=== PATIENT | female | born 1970 | race Caucasian/White ===

== ENCOUNTER 2019-07-15 12:25 | Day surgery (SDC) | payer OTHER ==
--- NOTE | 2019-07-11 15:24 | HP ---
Admitting History and Physical - Primary Care Physician PCP: Claritza Tony - Admission Chief Complaint: Right lower back melanoma History of Present Illness: 48 year old premenapausal female whose noticed a pigmented lesion on her right lower back, [employer] Tender did a wedge bx which showed 1.0 thick nevoid melanoma with positive deep margin.No ulceration or mitotic index. History Source: Patient Limitations to Obtaining History: No Limitations - Past Surgical History Past Surgical History: Yes: Tubal Ligation (2004) Additional Past Surgical History: breast reduction 2002 - Smoking History Smoking history: Former smoker Have you smoked in the past 12 months: No - Alcohol/Substance Use Hx Alcohol Use: Yes (social) Home Medications - Allergies Allergies/Adverse Reactions: Allergies Allergy/AdvReac Type Severity Reaction Status Date / Time No Known Allergies Allergy Verified 07/11/19 15:19 Family Medical History Family History: Unable to Obtain (adopted) Physical Examination Constitutional: Yes: Well Nourished Integumentary: Yes: Other (5mm eschar right lower back without pigmented lesion or satellites) Problem List - Problems (1) Melanoma Code(s): C43.9 - MALIGNANT MELANOMA OF SKIN, UNSPECIFIED Qualifiers: Melanoma location: unspecified site Qualified Code(s): C43.9 - Malignant melanoma of skin, unspecified Assessment/Plan malignant melanoma right lower back Right lower back malignant wide excision , sentenel node biopsy , lymphoscintogram ,possible dissection
[2019-07-11 15:44] VITALS: BMI 30.7
[2019-07-15] MEDS ORDERED: LIDOCAINE HCL 1%, 10 MG/ML (20ML VIAL) ONE (12:53)
[2019-07-15] MEDS ORDERED: HALOPERIDOL LACTATE 5 MG/ML ONE (14:11)
[2019-07-15] MEDS ORDERED: MIDAZOLAM HCL 2 MG/2 ML SINGLE DOSE VIAL ONE (14:12)
[2019-07-15] MEDS ORDERED: fentaNYL CITRATE 250 MCG/5 ML VIAL ONE (14:23)
[2019-07-15] MEDS ORDERED: PROPOFOL 20 ML ONE ×9 (14:24→15:57)
[2019-07-15] MEDS ORDERED: SUCCINYLCHOLINE CHLORIDE 200 MG/10 ML SYRINGE ONE (14:24)
[2019-07-15] MEDS ORDERED: ISOSULFAN BLUE 10 MG/ML VIAL SQ ONE ×2 (14:37→14:38)
[2019-07-15] MEDS ORDERED: LIDOCAINE HCL 2% JELLY (5 ML/TUBE) ONE (14:43)
[2019-07-15] MEDS ORDERED: KETOROLAC TROMETHAMINE 30 MG/1 ML VIAL ONE (14:43)
[2019-07-15] MEDS ORDERED: ONDANSETRON 4 MG/2 ML VIAL ONE (14:43)
[2019-07-15] MEDS ORDERED: LIDOCAINE HCL/PF 2% SDV 5ML VIAL ONE (14:43)
[2019-07-15] MEDS ORDERED: DEXAMETHASONE SOD PHOSPHATE 4 MG/1 ML VIAL ONE (14:43)
[2019-07-15] MEDS ORDERED: BUPIVACAINE HCL/PF 0.5% (5MG/ML) 10 ML VIAL ONE ×3 (15:18→15:47)
[2019-07-15] MEDS ORDERED: BUPIVACAINE HCL/PF 0.5% (5 MG/ML) 30 ML VIAL IJ ONE (15:25)
[2019-07-15] MEDS ORDERED: LIDOCAINE 1%/EPI 1:100000 (20 ML MULTI DOSE VIAL) ONE (15:47)
[2019-07-15] MEDS ORDERED: LIDOCAINE 1%/EPI 1:100000 (20 ML MULTI DOSE VIAL) IJ ONE ×2 (15:51)
[2019-07-15] MEDS ORDERED: ONDANSETRON 4 MG/2 ML VIAL IVPUSH PRN ×2 (16:31→16:40)
[2019-07-15] MEDS ORDERED: oxyCODONE HCL 5 MG TABLET PO PRN (16:31)
[2019-07-15] MEDS ORDERED: KETOROLAC TROMETHAMINE 30 MG/1 ML VIAL IVPUSH PRN (16:40)
[2019-07-15] MEDS ORDERED: LACTATED RINGERS SOLUTION 1,000 ML IV SCH (16:45)
[2019-07-15] MEDS ORDERED: DEXTROSE 5%-0.45% SALINE 1,000 ML IV SCH (16:45)
[2019-07-15 17:31] VITALS: TEMP 97.9
[2019-07-15 17:55] VITALS: BP 128/83; PULSE 76
--- NOTE | 2019-07-21 12:30 | PATH ---
Surgical Pathology Report Patient Name: DELGADO OLIVIA [facility]. Rec. #: [id number] /Age/Gender: 1970 (Age: 48) / F Account: [id number] Location: [facility] Taken: 07/15/2019 Received: 07/15/2019 Reported: 07/21/2019 Physicians: Claritza Tony M.D. Specimen(s) Received A: RIGHT AXILLARY SENTINEL LYMPH NODES B: MELANOMA RIGHT LOWER BACK Clinical History Malignant melanoma right lower back Final Diagnosis A. axillary sentinel lymph node, right, excision: Two lymph nodes, negative for metastatic melanoma on H&E stainED sections and melanocytic immunohistochemical markers (HMB-45 & Melan-A). (0/) B. lower back, right, melanoma, wide excision: Skin showing prior biopsy site changes. No residual MALIGNANT melanoma is identified. Pathologic stage (ptnm): pT1b pN0. (see comment) Comment :The "pT" stage is based on prior shave biopsy from outside institution ([id number]) which shows malignant melanoma with a thickness of 1 mm with no ulceration and a mitotic index of <1/mm2. Electronically Signed Cynthia Young M.D. Gross Description A. Received in formalin labeled "right axillary lymph nodes," are 2 lymph nodes with attached fat measuring 1.0 x 0.6 x 0.5 cm and 2.6 x 0.9 x 0.8 cm. The lymph nodes are bisected and entirely submitted in 3 cassettes as follows: 1-one bisected lymph node; 2-3-one bisected lymph node. B. Received in formalin labeled "melanoma right lower back," is a 5.8 x 2.4 cm carrasco, elliptical portion of skin excised to a depth of 5.0 cm. There is a short suture marking the superior margin and a long suture marking the lateral tip of the specimen, per the surgeon. The epidermal surface displays a 0.6 x 0.4 cm carrasco-brown pigmented lesion. The lesion is at 0.8 cm from the superior margin and 1.0 cm from the inferior margin. The specimen is inked as follows: Superior blue; inferior green; lateral tip red; medial yellow; deep black. [employer] sections are submitted in 13 cassettes as follows: 1-3-one full thickness trisected section from lesion to deep margin (1-skin, superior and inferior margins; 2-superior and inferior margins; 3-superior, inferior and deep margins); 4-4-oykuzmslyg full-thickness trisected section from lesion to deep margin; 6-4-hwfpppvsgj full-thickness trisected section from lesion to deep margin; 10-lateral tip; 11-medial tip; 12,13- additional sections with superior and inferior margins.. DL07/17/2019 [facility]07/17/2019
--- NOTE | 2019-08-01 20:29 | OP ---
DATE OF OPERATION: 07/15/2019 PREOPERATIVE DIAGNOSIS: Melanoma of the right lower back. POSTOPERATIVE DIAGNOSIS: Melanoma of the right lower back. PROCEDURE: Radical wide excision with complex closure of a right lower back melanoma and right axillary sentinel node biopsy. ANESTHESIA: General intubated. ATTENDING SURGEON: Claritza Tony MD. ESTIMATED BLOOD LOSS: Minimal. COMPLICATIONS: None. DESCRIPTION OF PROCEDURE: Patient was made aware of the risks and benefits of the procedure and consented. Preoperatively, she went to nuclear medicine, where they injected the prior melanoma biopsy site with radioactive tracer. She then underwent lymphoscintigraphy which unfortunately did not show any flow to regional lymph nodes. In the preoperative holding area using the Neoprobe, I was able to identify a little bit of uptake in nuclear medicine in the right axilla. She was then placed in the supine position on the operating room table, and after general anesthesia was induced, the patient was intubated; 1 mL of 1% isosulfan blue was locally infiltrated into the peritumoral dermal skin. A right axilla was then prepped and draped in normal sterile fashion. Curvilinear incision was made in the right axilla using blunt and sharp dissection. Tissues were dissected downwards. Two blue and hot lymph nodes were identified and surgically excised and submitted for pathology. Palpation of the right of the axilla found no suspicious areas, and interrogation with the Neoprobe found no hot areas. The wound was then closed with deep interrupted dermal followed by running subcuticular 4-0 Monocryl. The site was injected with 0.5% bupivacaine. Steri-Strips and a sterile dressing was applied. The patient was then placed in the left lateral decubitus position. The operative site was prepped and draped in the usual sterile fashion. 1.0-cm margins were made around the eschar and an elliptical incision was marked out in a horizontal fashion; 1% lidocaine with epinephrine combined with 0.5% bupivacaine was used for local anesthesia. An elliptical incision was made around the eschar extending down to the muscular fascia, and then excised and admitted with a short suture superior, long suture lateral. The fat and subcutaneous tissue was taken off the muscle fascia superior and inferior and rotated into the defect; this was then closed with deep 2-0 Vicryl followed by interrupted subdermal 3-0 Vicryl followed by a running simple suture of 3-0 nylon. Sterile dressing was then applied, and the patient having tolerated procedure well was transferred to the recovery room in excellent condition. CLARITZA TONY M.D. [id number]
== END 2019-07-15 18:15 | disposition home or self-care (01) ==
LOC: FASU 12:25
PROVIDERS: ATTEND Surgery Surgical Oncology
PROC: 0KBF0ZX Excision of Right Trunk Muscle, Open Approach, Diagnostic (ICD-10-PCS; principal; 2019-07-15 13:00)
PROC: 07B50ZX Excision of Right Axillary Lymphatic, Open Approach, Diagnostic (ICD-10-PCS; 2019-07-15 13:00)
DX: C49.6 Malignant neoplasm of connective and soft tissue of trunk, unspecified (principal); R59.0 Localized enlarged lymph nodes
CPT/HCPCS: 78195-TC; 84703; 88305-TC; 88307-TC; 94760; A9541